=== PATIENT | female | born 1950 | race Caucasian/White ===

== ENCOUNTER → 2020-12-09 | Outpatient (CLI) | payer MEDICARE ==
[~2020-12-09] MED LIST: LODINE CAP 300300 MG PO; ZOFRAN ODT 4 MG4 MG PO
== END ==
LOC: KOH-I 15:52
DX: M25.511 Pain in right shoulder (principal)
CPT/HCPCS: 73030

== ENCOUNTER → 2022-07-20 | Outpatient (CLI) | payer MEDICARE | LOC: RAD 12:16 | DX: R07.81 Pleurodynia (principal); R06.02 Shortness of breath | CPT/HCPCS: 71046; 71100 ==